=== PATIENT | male | born 1985 | race African-American/Black ===

== ENCOUNTER 2016-06-21 00:05 | Emergency (ER) | payer SELFPAY ==
[2016-06-21 00:20] VITALS: BP 136/71
[2016-06-21] MEDS ORDERED: ACETAMINOPHEN 325 MG TABLET PO ONE (00:20)
--- NOTE | 2016-06-21 01:14 | ER Document Report ---
HPI - HPI Pain Level: 5 - REPRODUCTIVE Reproductive: DENIES: : - DERM Skin Color: Normal Past Medical History - Social History Family History: Arthritis, DM, Hyperlipidemia, Hypertension, Malignancy Patient has suicidal ideation: No Patient has homicidal ideation: No Pulmonary Medical History: Reports: Hx Asthma Renal/ Medical History: Denies: Hx Peritoneal Dialysis Musculoskeltal Medical History: Reports Hx Musculoskeletal Deformity, Reports Hx Musculoskeletal Trauma Traumatic Medical History: Reports: Hx Fractures Past Surgical History: Reports: Hx Orthopedic Surgery - left arm - Immunizations Immunizations up to date: Yes Hx Diphtheria, Pertussis, Tetanus Vaccination: Yes Hx Pneumococcal Vaccination: 03/15/00 Vertical Provider Document - INFECTION CONTROL TRAVEL OUTSIDE OF THE [place] IN LAST 30 DAYS: No - RESPIRATORY O2 Sat by Pulse Oximetry: 97 Course - Vital Signs Vital signs: Temp Pulse Resp BP Pulse Ox 99.8 F 91 18 136/71 H 97 06/21/16 00:16 06/21/16 00:16 06/21/16 00:16 06/21/16 00:16 06/21/16 00:16 Discharge - Discharge Clinical Impression: Sore throat Condition: Stable Instructions: Sore Throat ([facility]) Additional Instructions: *You have been evaluated for a sore throat *A throat culture is pending, you will be contacted should you need antibiotics. In the meantime, Warm salt water gargles and throat lozenges for comfort *Do not let anyone drink/eat after you *Good hand washing *Follow-up with a primary care provider within one week for recheck *Return to ED for worsening condition change, needs Forms: Elevated Blood Pressure
[2016-06-21] MEDS ORDERED: AMOXICILLIN TRIHYDRATE 500 MG CAPSULE PO ONE (01:21)
--- NOTE | 2016-06-21 01:23 | ER Document Report ---
HPI - HPI Patient complains to provider of: sore throat ear pain Onset: Yesterday Onset/Duration: Sudden Quality of pain: Burning Severity: Severe Pain Level: 5 Context: Patient presents emergency department with complaints of sore throat that started yesterday. He also reports his ears are hurting. He denies fever vomiting diarrhea. He reports he's been eating ice cream all day because his throat has been hurting. Patient is was also talks in a clear voice. Denies exposure to strep Associated Symptoms: None Exacerbated by: Denies, Food Relieved by: Denies Similar symptoms previously: No Recently seen / treated by doctor: No - REPRODUCTIVE Reproductive: DENIES: : - DERM Skin Color: Normal Past Medical History - General Information source: Patient - Social History Smoking Status: Unknown if Ever Smoked Cigarette use (# per day): No Frequency of alcohol use: None Drug Abuse: None Family History: Arthritis, DM, Hyperlipidemia, Hypertension, Malignancy Patient has suicidal ideation: No Patient has homicidal ideation: No Pulmonary Medical History: Reports: Hx Asthma Renal/ Medical History: Denies: Hx Peritoneal Dialysis Musculoskeltal Medical History: Reports Hx Musculoskeletal Deformity, Reports Hx Musculoskeletal Trauma Traumatic Medical History: Reports: Hx Fractures Past Surgical History: Reports: Hx Orthopedic Surgery - left arm - Immunizations Immunizations up to date: Yes Hx Diphtheria, Pertussis, Tetanus Vaccination: Yes Hx Pneumococcal Vaccination: 03/15/00 Vertical Provider Document - CONSTITUTIONAL Agree With Documented VS: Yes Exam Limitations: No Limitations General Appearance: WD/WN, Mild Distress - winces when swallowing - INFECTION CONTROL TRAVEL OUTSIDE OF THE [place] IN LAST 30 DAYS: No - HEENT HEENT: Normocephalic, Pharyngeal Tenderness, Pharyngeal Erythema - No peritonsillar abscess good clear voice no trismus, opens mouth wide, no tonsillar hypertrophy, Tympanic Membrane Red - left. negative: Conjuctival Injection, Pharyngeal Exudate, Tympanic Membrane Bulging - NECK Neck: Normal Inspection, Supple. negative: Lymphadenopathy-Left, Lymphadenopathy-Right - RESPIRATORY Respiratory: Breath Sounds Normal, No Respiratory Distress O2 Sat by Pulse Oximetry: 97 - CARDIOVASCULAR Cardiovascular: Regular Rate, Regular Rhythm - MUSCULOSKELETAL/EXTREMETIES Musculoskeletal/Extremeties: MAEW, FROM - NEURO Level of Consciousness: Awake, Alert, Appropriate Motor/Sensory: No Motor Deficit - DERM Integumentary: Warm, Dry Course - Re-evaluation Re-evalutation: 06/21/16 01:27 She was instructed on amoxicillin negative strep and throat culture pending. He was instructed to utilize warm salt water gargles and keep his throat wet. He was also instructed to return the emergency department for any problems swallowing or breathing. He verbalized understanding to all instructions - Vital Signs Vital signs: Temp Pulse Resp BP Pulse Ox 99.8 F 91 18 136/71 H 97 06/21/16 00:16 06/21/16 00:16 06/21/16 00:16 06/21/16 00:16 06/21/16 01:14 Discharge - Discharge Clinical Impression: Sore throat, Elevated blood pressure reading Left otitis media Qualifiers: Otitis media type: unspecified Chronicity: unspecified Qualified Code(s): H66.92 - Otitis media, unspecified, left ear Condition: Stable Disposition: HOME, SELF-CARE Instructions: Sore Throat ([facility]), Amoxicillin ([facility]), Otitis Media ([facility]) Additional Instructions: *You have been evaluated for a sore throat left ear pain, otitis media, elevated blood pressure reading *A throat culture is pending, you will be contacted should you need antibiotics. In the meantime, Warm salt water gargles and throat lozenges for comfort *Do not let anyone drink/eat after you *Good hand washing *Take medication as prescribed *Motrin as indicated for pain *Follow-up with a primary care provider within one week for recheck *Return to ED for worsening condition change, needs Monitor your blood pressure. Your blood pressure was elevated today. This may be because you were anxious, in pain or because you need medication. It is important to follow up with your primary care provider for full evaluation. Prescriptions: Amoxicillin Trihydrate [Amoxil 500 mg Capsule] 500 mg PO TID #30 capsule Forms: Elevated Blood Pressure, Return to Work
== END 2016-06-21 01:33 | disposition home or self-care (01) ==
LOC: ER 00:05
DX: J02.9 Acute pharyngitis, unspecified (principal); H66.92 Otitis media, unspecified, left ear; R03.0 Elevated blood-pressure reading, without diagnosis of hypertension; J45.909 Unspecified asthma, uncomplicated
CPT/HCPCS: 87070; 87880; 99283

== ENCOUNTER 2017-01-25 10:13 | Emergency (ER) | payer SELFPAY ==
--- NOTE | 2017-01-25 10:45 | ER Document Report ---
HPI - HPI Pain Level: 4 Notes: Patient is a 31-year-old male with a history of asthma who presents ED complaining of a dry nonproductive cough, and intermittent episodes of wheezing 2 days. Patient states that he believes he is been exposed to an allergen at his home causing his asthma flareup. Patient states that he has been using his inhaler at home as well. Pt also c/o recent (x3wks) rib fracture that is starting to become sore again from his coughing on the left lower side. He still eating and drinking without difficulties. Patient states that he has no other associated symptoms. Denies any drug allergies. Denies any smoking or IV drug use. Denies any headache, fever, neck pain, URI, sore throat, chest pain, palpitations, syncope, shortness of breath, dyspnea, abdominal pain, nausea/vomiting/diarrhea, urinary retention, dysuria, hematuria, or rash. Denies any recent travel, leg/calf pains, hormone use, surgeries, or trauma. No h/o DVT, PE, ACS, DM. - ROS Notes: REVIEW OF SYSTEMS: CONSTITUTIONAL : Denies fever, chills, or sweats. Denies recent illness. EENT: Denies eye, ear, throat, or mouth pain or symptoms. Denies nasal or sinus congestion or discharge. Denies throat, tongue, or mouth swelling or difficulty swallowing. CARDIOVASCULAR: Denies chest pain. Denies palpitations or racing or irregular heart beat. Denies ankle edema. RESPIRATORY: see hpi GASTROINTESTINAL: Denies abdominal pain or distention. Denies nausea, vomiting , or diarrhea. Denies blood in vomitus, stools, or per rectum. Denies black, tarry stools. Denies constipation. GENITOURINARY: Denies difficulty urinating, painful urination, burning, frequency, blood in urine, or discharge. MUSCULOSKELETAL: see hpi SKIN: Denies rash, lesions or sores. NEUROLOGICAL: Denies confusion or altered mental status. Denies passing out or loss of consciousness. Denies dizziness or lightheadedness. Denies headache. Denies weakness or paralysis or loss of use of either side. Denies problems with gait or speech. Denies sensory loss, numbness, or tingling. ALL OTHER SYSTEMS REVIEWED AND NEGATIVE. Dictation was performed using [employer] voice recognition software - REPRODUCTIVE Reproductive: DENIES: : - DERM Skin Color: Normal Past Medical History - Social History Smoking Status: Never Smoker Family History: Arthritis, DM, Hyperlipidemia, Hypertension, Malignancy Patient has suicidal ideation: No Patient has homicidal ideation: No Pulmonary Medical History: Reports: Hx Asthma Renal/ Medical History: Denies: Hx Peritoneal Dialysis Musculoskeltal Medical History: Reports Hx Musculoskeletal Deformity, Reports Hx Musculoskeletal Trauma Traumatic Medical History: Reports: Hx Fractures Past Surgical History: Reports: Hx Orthopedic Surgery - left arm - Immunizations Immunizations up to date: Yes Hx Diphtheria, Pertussis, Tetanus Vaccination: Yes Hx Pneumococcal Vaccination: 03/15/00 Vertical Provider Document - CONSTITUTIONAL Agree With Documented VS: Yes Notes: PHYSICAL EXAMINATION: GENERAL: Well-appearing, well-nourished and in no acute distress. HEAD: Atraumatic, normocephalic. EYES: Pupils equal round and reactive to light, extraocular movements intact, sclera anicteric, conjunctiva are normal. ENT: Nares patent and without discharge. oropharynx clear without exudates. No tonsilar hypertrophy or erythema. Moist mucous membranes. NECK: Normal range of motion, supple without lymphadenopathy. No rigidity/ meningismus. Chest: + tenderness to the lower left anterior rib (tenderness elicited corresponds to pain described and location of prev recent fracture). LUNGS: Breath sounds clear to auscultation bilaterally and equal. No wheezes rales or rhonchi. HEART: Regular rate and rhythm without murmurs, rubs, gallops. ABDOMEN: Soft, nontender, nondistended abdomen. No guarding, no rebound. No masses appreciated. Normal bowel sounds present. No CVA tenderness bilaterally. Musculoskeletal: FROM to passive/active. Strength 5+/5. Brian neg. Extremities: No cyanosis, clubbing, or edema b/l. Peripheral pulses 2+. Capillary refill less than 3 seconds. NEUROLOGICAL: Normal speech, normal gait. Normal sensory, motor exams PSYCH: Normal mood, normal affect. SKIN: Warm, Dry, normal turgor, no rashes or lesions noted. - INFECTION CONTROL TRAVEL OUTSIDE OF THE [place] IN LAST 30 DAYS: No Course - Re-evaluation Re-evalutation: 01/25/17 10:43 Patient is an afebrile, well-hydrated, 31-year-old male who presents the ED with a cough, suspect mild exacerbation of his asthma at this time as well as left rib pain that I suspect is inflammatory from his recent injury and his coughing. Vitals are stable. PE is otherwise unremarkable. PERC 0. Low suspicion for any ACS, PE, pneumothorax, pericarditis, dissection, respiratory compromise, or other systemic emergent condition at this time. Patient is aware that his condition can change from initial presentation and he needs to monitor symptoms closely and seek medical attention with any acute changes. Differential does include that his cough could be a viral illness. No imaging warranted today based on H&P. I will send him home with a steroid tapering dose. He is to continue his inhaler at home as needed. Conservative measures otherwise for symptoms. Recheck with your PCM in 3-5 days. Return to the ED with any worsening/concerning symptoms otherwise as reviewed in discharge. Patient is in agreement. Discharge - Discharge Clinical Impression: Cough Condition: Stable Disposition: HOME, SELF-CARE Instructions: Bronchitis With Bronchospasm (Wheezing) ([facility]), Steroid Medication , Asthma ([facility]) Additional Instructions: Maintain adequate fluid intake Take meds as directed Use home inhaler as needed tylenol/ibuprofen as needed over the counter cold medication as needed for symptoms Humidified air may help F/u: with your PCM in 3-5 days for a recheck Return to the ED with any fever, worsening pain, chest pain, palpitations, syncope, worsening MADDEN, neck pain/stiffness, shortness of breath, wheezing, drooling, trouble swallowing/breathing, abdominal pain, n/v/d, rash, or worsening/concerning symptoms otherwise. Prescriptions: Prednisone [Deltasone 10 mg Tablet] 10 mg PO ASDIR PRN #21 tablet PRN Reason: Referrals: [facility] [Provider Group] - Follow up as needed [facility] [Provider Group] - Follow up as needed
== END 2017-01-25 11:00 | disposition home or self-care (01) ==
LOC: ER 10:13
DX: R05 Cough (principal); J45.909 Unspecified asthma, uncomplicated; R07.81 Pleurodynia
CPT/HCPCS: 99283